=== PATIENT | male | born 1940 | race Caucasian/White ===

== ENCOUNTER 2021-05-22 07:39 | Outpatient (CLI) | payer OTHER, SELFPAY ==
--- NOTE | 2021-05-22 08:00 | USCV_ITS ---
Carlos Nesbitt Age: 80 Gender: M : 1940 Exam Date: 05/22/2021 08:11 Ordering Phys: Tigre Sultana MD ([email or web address]) Technologist: ALEE Exam Location: [facility] – [place] Indication: STENOSIS Risk Factors: Previous Vascular Surgery: Right Brachial BP: / Left Brachial BP: / Right Left Velocity (cm/s) Spectral Plaque Velocity (cm/s) Spectral Plaque Syst/Diast Broadening Syst/Diast Broadening 54.60/ 12.50 Prox CCA 83.50 / 23.00 66.40/ 17.10 Mid CCA 54.60 / 17.70 33.80/ 8.90 Distal CCA 40.20 / 9.40 39.50/ 8.50 Prox ICA 29.50 / 8.10 76.20/ 25.00 Mid ICA 58.50 / 19.70 76.90/ 30.90 Distal ICA 73.70 / 25.60 106.80 ECA 82.20 1.15 ICA/CCA 1.07 Antegrade Vertebral Antegrade 39.40/ 13.80 cm/s 37.40/ 13.90 cm/s Bi Subclavian Bi 54.50 63.60 CONCLUSIONS Right ICA stenosis <50%. Mild atheromatous plaque right carotid bulb/ICA. Left ICA stenosis <50%. Mild atheromatous plaque left carotid bulb/ICA. Normal antegrade Doppler flow noted in the right vertebral artery. Normal antegrade Doppler flow noted in the left vertebral artery. Blaine Best MD (Electronically Signed) Final Date: 22 May 2021 13:18 S
--- NOTE | 2021-05-22 09:00 | CT_ITS ---
WS: [id number] CTA ABDOMEN PELVIS TECHNIQUE: Contrast enhanced CTA of the abdomen and pelvis with coronal and sagittal reformatted imag es and additional MIP Images. CLINICAL INFORMATION: I71.4 - Abdominal aortic aneurysm, without rupture COMPARISON: None. DLP: 682.[address] scans at [facility] use at least one of these dose optimization techniques: automated e xposure control; mA and/or kV adjustment per patient size (includes targeted exams where dose is matc hed to clinical indication); or iterative reconstruction. FINDINGS: Moderate aortic calcification. Distal abdominal aortic aneurysm with peripheral mural thrombus. Aneur ysm measures approximately 2.7 x 3.1 CM AP by transverse. Celiac and SMA are patent with mild calcifi cation at the origin. Proximal renal arteries are patent. SUSAN is patent. Densely calcified common juliocesar ac arteries bilaterally. Chronic emphysematous changes at the lung bases. Slight atelectasis in the right middle lobe and ling janessa. Normal liver. Normal gallbladder. Normal GE junction. Adrenal glands are normal. Normal renal pa renchymal enhancement. No hydronephrosis. Perinephric edema can be seen with renal insufficiency. Fat ty atrophy of the pancreas. Normal spleen. No abdominal or pelvic lymphadenopathy. Enlarged prostate with calcification and evidence of bladder outlet obstruction. Diffuse bladder wall thickening. Prostate measures 3.5 x 4.3 CM. Normal sigmoid colon. No evidence of high-grade small or large bowel obstruction. Fat-containing right inguinal hernia. No pelvic or inguinal lymphadenopathy. Tiny fat-containing umbi lical hernia. CT/CT angio abdomen pelvis [id number] IMPRESSION: 1. Distal abdominal aortic aneurysm with peripheral mural thrombus. Aneurysm m easures 2.7 x 3.1 cm AP by transverse. 2. Celiac, SMA, proximal renal arteries are patent. SUSAN is patent. 3. Enlarged prostate measuring 3.4 x 4.2 CM.Correlation PSA. Evidence of bladd er outlet obstruction. 4. Tiny fat-containing umbilical hernia. 5. No other significant findings.
[2021-05-22 09:20] LABS: Blood Urea Nitrogen 16 mg/dL (8-23)
[2021-05-22] MEDS: iohexol 350 mg/mL 100 mL Btl IV (09:33)
== END 2021-05-22 07:40 | disposition home or self-care (01) ==
LOC: US 07:42
PROVIDERS: Visit Provider Internal Medicine Cardiovascular Disease
DX: I71.4 Abdominal aortic aneurysm, without rupture (principal); K42.9 Umbilical hernia without obstruction or gangrene; N40.0 Benign prostatic hyperplasia without lower urinary tract symptoms
CPT/HCPCS: 36415; 74174; 82565; 84520; 93880

== ENCOUNTER → 2022-05-16 09:45 | Outpatient (BNVA) | payer OTHER, SELFPAY | PROVIDERS: PCP Family Medicine; Visit Provider Internal Medicine Cardiovascular Disease | DX: I25.10 Atherosclerotic heart disease of native coronary artery without angina pectoris (principal); I77.9 Disorder of arteries and arterioles, unspecified; I10 Essential (primary) hypertension; E78.5 Hyperlipidemia, unspecified; I71.40 Abdominal aortic aneurysm, without rupture, unspecified; Z87.891 Personal history of nicotine dependence | CPT/HCPCS: 99213 ==

== ENCOUNTER → 2022-11-13 10:35 | Outpatient (BNVA) | payer OTHER, SELFPAY | PROVIDERS: PCP Family Medicine; Visit Provider Nurse Practitioner Family | DX: L82.0 Inflamed seborrheic keratosis (principal); L57.0 Actinic keratosis; L85.3 Xerosis cutis; D22.5 Melanocytic nevi of trunk; L81.4 Other melanin hyperpigmentation; L57.8 Other skin changes due to chronic exposure to nonionizing radiation; L82.1 Other seborrheic keratosis; R23.3 Spontaneous ecchymoses | CPT/HCPCS: 17000; 17003; 17110; 99214 ==

== ENCOUNTER → 2023-01-21 11:27 | Outpatient (BNVA) | payer OTHER, SELFPAY | PROVIDERS: PCP Family Medicine; Visit Provider Internal Medicine Cardiovascular Disease | DX: I10 Essential (primary) hypertension (principal); I25.10 Atherosclerotic heart disease of native coronary artery without angina pectoris; E78.5 Hyperlipidemia, unspecified; Z95.5 Presence of coronary angioplasty implant and graft; Z87.891 Personal history of nicotine dependence | CPT/HCPCS: 99213 ==

== ENCOUNTER → 2023-08-12 15:02 | Outpatient (BNVA) | payer OTHER, SELFPAY | PROVIDERS: PCP Family Medicine; Visit Provider Dermatology | DX: L57.0 Actinic keratosis (principal); R20.2 Paresthesia of skin; L81.4 Other melanin hyperpigmentation; L57.8 Other skin changes due to chronic exposure to nonionizing radiation; L82.1 Other seborrheic keratosis; D69.2 Other nonthrombocytopenic purpura | CPT/HCPCS: 17000; 99213 ==

== ENCOUNTER → 2023-08-13 12:41 | Outpatient (BNVA) | payer OTHER, SELFPAY | PROVIDERS: PCP Family Medicine; Visit Provider Internal Medicine Cardiovascular Disease | DX: I10 Essential (primary) hypertension (principal); E78.5 Hyperlipidemia, unspecified; Z95.5 Presence of coronary angioplasty implant and graft; I25.10 Atherosclerotic heart disease of native coronary artery without angina pectoris; I77.9 Disorder of arteries and arterioles, unspecified; I71.40 Abdominal aortic aneurysm, without rupture, unspecified; Z87.891 Personal history of nicotine dependence | CPT/HCPCS: 99213 ==

== ENCOUNTER 2023-08-25 10:45 | Outpatient (CLI) | payer OTHER, SELFPAY ==
--- NOTE | 2023-08-25 11:00 | USCV_ITS ---
Carlos Nesbitt Age: 82 Gender: M : 1940 Exam Date: 08/25/2023 11:02 Ordering Phys: Sterling Ashley MD ([email or web address]) Technologist: BOSSMAN [place]am Location[place] [facility] [place] [facility] [place] Indication: RECHECK ON AAA FROM CT EXAM HISTORY: RECHECK ON AAA Diameter (cm) AP x Transverse x Length Velocity (cm/s) Waveform Prox Aorta: 2.15 x 2.10 x 107.80 Mid Aorta: 1.66 x 1.91 x 36.80 Distal Aorta: 2.78 x 3.09 x 36.80 Right Iliac Prox: 1.09 x 1.02 x 102.10 Left Iliac Prox: 1.16 x 1.20 x 80.00 Stent Prox Landing x x Aneurysmal Sac Max x x Lt Lat Sac Dim Rt Lat Sac Dim Stent Dist Landing x x Right Iliac Stent x x Left Iliac Stent x x Right Renal Art Left Renal Art FINDINGS: Comparison: none available. A fusiform abdominal aortic aneurysm is noted with a maximal diameter of 3.1 cm. Atherosclerotic plaque is noted in the abdominal aorta. There is evidence of atherosclerotic plaque no significan stenosis in the right common iliac artery. There is evidence of atherosclerotic plaque no significan stenosis in the left common iliac artery. CONCLUSIONS AAA, 3.[address] Lilli Brunson DO (Electronically Signed) Final Date: 25 August 2023 12:23 S
== END 2023-08-25 10:46 | disposition home or self-care (01) ==
LOC: RAD 10:45
PROVIDERS: PCP Family Medicine; Visit Provider Internal Medicine Cardiovascular Disease
DX: I71.40 Abdominal aortic aneurysm, without rupture, unspecified (principal)
CPT/HCPCS: 93978

== ENCOUNTER 2024-01-12 11:58 | Outpatient (CLI) | payer OTHER, SELFPAY ==
--- NOTE | 2024-01-12 12:09 | PETR_ITS ---
PROCEDURE INFORMATION: Exam: PET/CT Skull Base to Mid-thigh Exam date and time: 01/12/2024 10:49 AM Age: 83 years old Clinical indication: Abnormal findings; Lung nodule; Prior surgery; Surgery date: 6+ months; Surgery type: Bladder LABS AND CLINICAL REPORTS: Glucose: 100 mg/dl Treatment strategy for malignancy (PET staging): Initial Staging (PI) TECHNIQUE: Imaging protocol: Following at least four-hour fasting and following the injection of radiopharmaceutical, low dose CT images were obtained. Then, PET images were obtained. Attenuation corrected images were constructed using the CT scan. Fused images of PET and CT were reviewed. The standardized uptake values (SUV) reported below are maximum values within a region of interest, expressed in gm/ml. Exam includes orbital meatal line to mid-thigh. Radiopharmaceutical: 14 mCi F-18 FDG (Fluorodeoxyglucose), IV. Time of imaging post radiopharmaceutical administration: 1 hour Injection site: Left antecubital COMPARISON: CT angio abdomen pelvis [id number] 05/22/2021 9:26 AM FINDINGS: Brain: Visualized brain has normal physiologic uptake. Orbits: Mild asymmetric thickening and FDG uptake in the region of the right lacrimal gland shows SUV max of 3.8. Pharynx: No abnormal uptake. Larynx: No abnormal uptake. Lungs, pleura and trachea: Severe emphysematous change. Spiculated left upper lobe nodule measures up to 2.7 x 1.7 cm on axial image 59 of series 3 and shows FDG uptake with SUV max of 4.8 on axial image 62 of series 3. Heart: Normal physiologic uptake. Coronary arteries: Heavy coronary artery calcification. Mediastinal space: No abnormal uptake. Liver: No abnormal uptake. Stable right hepatic calcifications. Gallbladder and biliary ducts: No abnormal uptake. Pancreas: No abnormal uptake. Redemonstrated fatty infiltration/atrophy greatest proximally. Spleen: No abnormal uptake. Adrenal glands: No abnormal uptake. Kidneys and ureters: Normal physiologic uptake. Stomach and bowel: No abnormal uptake. Urinary bladder: Evidence of prior surgery at the inferior bladder. Otherwise unremarkable as visualized. Reproductive: Mildly enlarged prostate gland without abnormal FDG uptake. Vasculature: No abnormal uptake. Heavy systemic atherosclerosis with stable fusiform infrarenal abdominal aortic aneurysm measuring 3.2 cm. Lymph nodes: AP window lymph node measures 1.1 cm in the short axis and shows FDG uptake with SUV max of 4.4. FDG uptake at left hilar lymph node that is not discretely measurable shows SUV max of 3.5. Skeleton: Widespread multifocal FDG uptake throughout the imaged axial and proximal appendicular skeletal system with heterogeneous sclerosis at the distal right clavicle and left upper scapula. Mildly heterogeneous attenuation of the posterior left ilium, leftward sacrum, and right supra-acetabular region. Subtle ground-glass attenuation at the left anterior inferior iliac spine and left femoral neck. Multiple additional foci of FDG uptake along the spine, rightward manubrium, bilateral humeri, bilateral pelvic bones and femora showed no underlying CT abnormality. Sparing of the ribs. Non FDG avid lucent lesion at the rightward T12 vertebral body. No acute fracture. Mild degenerative change along the spine. Soft tissues: No abnormal uptake in the visualized head, neck, chest, abdomen, pelvis, and extremities. Linear uptake along the right forearm and hand muscles without underlying CT abnormality likely physiologic. PET/PET skull to thigh INIT [id number] IMPRESSION: 1. FDG avid spiculated left upper lobe nodule suspicious for malignancy. 2. FDG avid mediastinal and left hilar lymphadenopathy likely metastatic. 3. Widespread osseous metastases. 4. Mild asymmetric thickening and FDG uptake in the region of the right lacrimal gland may represent dacryoadenitis. 5. Additional chronic and incidental findings as above, to include atherosclerosis with stable 3.2 cm infrarenal abdominal aortic aneurysm and heavy coronary artery calcification.
== END 2024-01-12 11:59 | disposition home or self-care (01) ==
PROVIDERS: PCP Family Medicine; Visit Provider Family Medicine
DX: D38.1 Neoplasm of uncertain behavior of trachea, bronchus and lung (principal); R91.1 Solitary pulmonary nodule; R93.89 Abnormal findings on diagnostic imaging of other specified body structures; R93.7 Abnormal findings on diagnostic imaging of other parts of musculoskeletal system; I71.43 Infrarenal abdominal aortic aneurysm, without rupture; I25.10 Atherosclerotic heart disease of native coronary artery without angina pectoris; R93.0 Abnormal findings on diagnostic imaging of skull and head, not elsewhere classified; J43.9 Emphysema, unspecified; K76.89 Other specified diseases of liver
CPT/HCPCS: 78815; A9552

== ENCOUNTER → 2024-02-10 12:50 | Outpatient (BNVA) | payer OTHER, SELFPAY | PROVIDERS: PCP Family Medicine; Visit Provider Internal Medicine Cardiovascular Disease | DX: I10 Essential (primary) hypertension (principal); E78.5 Hyperlipidemia, unspecified; Z95.5 Presence of coronary angioplasty implant and graft; I25.10 Atherosclerotic heart disease of native coronary artery without angina pectoris; I77.9 Disorder of arteries and arterioles, unspecified; R94.2 Abnormal results of pulmonary function studies; I71.40 Abdominal aortic aneurysm, without rupture, unspecified; Z87.891 Personal history of nicotine dependence | CPT/HCPCS: 99213 ==

== ENCOUNTER → 2024-07-28 08:36 | Outpatient (BNVA) | payer OTHER, SELFPAY | PROVIDERS: PCP Family Medicine; Visit Provider Nurse Practitioner Family | DX: R20.2 Paresthesia of skin (principal); L81.4 Other melanin hyperpigmentation; L57.8 Other skin changes due to chronic exposure to nonionizing radiation; L82.1 Other seborrheic keratosis; D69.2 Other nonthrombocytopenic purpura; B02.9 Zoster without complications; Z08 Encounter for follow-up examination after completed treatment for malignant neoplasm; Z85.828 Personal history of other malignant neoplasm of skin; L57.0 Actinic keratosis | CPT/HCPCS: 17000; 99214 ==

== ENCOUNTER → 2024-09-01 10:49 | Outpatient (BNVA) | payer OTHER, SELFPAY | PROVIDERS: PCP Family Medicine; Visit Provider Nurse Practitioner Family | DX: B02.9 Zoster without complications (principal); R20.2 Paresthesia of skin; L81.4 Other melanin hyperpigmentation; L57.8 Other skin changes due to chronic exposure to nonionizing radiation; Z08 Encounter for follow-up examination after completed treatment for malignant neoplasm; Z85.828 Personal history of other malignant neoplasm of skin; L57.0 Actinic keratosis | CPT/HCPCS: 17000; 99213 ==

== ENCOUNTER → 2024-09-06 08:23 | Outpatient (BNVA) | payer OTHER, SELFPAY | PROVIDERS: PCP Family Medicine; Visit Provider Nurse Practitioner Family | DX: I71.20 Thoracic aortic aneurysm, without rupture, unspecified (principal); I10 Essential (primary) hypertension; Z87.891 Personal history of nicotine dependence | CPT/HCPCS: 99214 ==

== ENCOUNTER 2024-09-23 10:40 | Outpatient (CLI) | payer OTHER, SELFPAY ==
--- NOTE | 2024-09-23 11:00 | USCV_ITS ---
Carlos Nesbitt Age: 83 Gender: M : 1940 Exam Date: 09/23/2024 10:49 Ordering Phys: Obdulia Ocampo NP Technologist: David Whyte Exam Location: [facility] – [place] Indication: aaa HISTORY: Diameter (cm) AP x Transverse x Length Velocity (cm/s) Waveform Prox Aorta: 2.31 x 2.13 x 41.10 Mid Aorta: 2.08 x 1.85 x 45.40 Distal Aorta: 2.59 x 3.01 x 49.10 Right Iliac Prox: 1.02 x 1.24 x 78.20 Left Iliac Prox: 1.27 x 1.17 x 2.10 98.10 Stent Prox Landing x x Aneurysmal Sac Max x x Lt Lat Sac Dim Rt Lat Sac Dim Stent Dist Landing x x Right Iliac Stent x x Left Iliac Stent x x Right Renal Art Left Renal Art FINDINGS: Comparison:. 08/25/23 A fusiform abdominal aortic aneurysm is noted with a maximal diameter of 3.1 cm. Thrombus is noted in the aneurysm. Thrombus is new from the prior exam, no increase in diameter of the AAA.there is evidence of atherosclerotic plaque no significan stenosis in the right common iliac artery. There is evidence of atherosclerotic plaque no significan stenosis in the left common iliac artery. CONCLUSIONS Stable size AAA, 3.1 cm. New intraluminal thrombus in the aneurysm. No occlusion. Dr. Lilli Brunson DO (Electronically Signed) Final Date: 23 September 2024 11:20 S
== END 2024-09-23 10:41 | disposition home or self-care (01) ==
LOC: RAD 10:40
PROVIDERS: PCP Family Medicine; Visit Provider Nurse Practitioner Family
DX: I71.43 Infrarenal abdominal aortic aneurysm, without rupture (principal); I74.09 Other arterial embolism and thrombosis of abdominal aorta; I70.8 Atherosclerosis of other arteries
CPT/HCPCS: 93978

== ENCOUNTER → 2024-11-30 13:28 | Outpatient (BNVA) | payer OTHER, SELFPAY | PROVIDERS: PCP Family Medicine; Visit Provider Nurse Practitioner Family | DX: R20.2 Paresthesia of skin (principal); L81.4 Other melanin hyperpigmentation; L57.8 Other skin changes due to chronic exposure to nonionizing radiation; Z08 Encounter for follow-up examination after completed treatment for malignant neoplasm; Z85.828 Personal history of other malignant neoplasm of skin; L57.0 Actinic keratosis | CPT/HCPCS: 17000; 99213 ==

== ENCOUNTER → 2025-03-07 15:24 | Outpatient (BNVA) | payer OTHER, SELFPAY | PROVIDERS: PCP Family Medicine; Visit Provider Internal Medicine Cardiovascular Disease | DX: I71.40 Abdominal aortic aneurysm, without rupture, unspecified (principal); I10 Essential (primary) hypertension; C91.10 Chronic lymphocytic leukemia of B-cell type not having achieved remission; I25.10 Atherosclerotic heart disease of native coronary artery without angina pectoris; R94.2 Abnormal results of pulmonary function studies; Z79.01 Long term (current) use of anticoagulants; Z95.5 Presence of coronary angioplasty implant and graft; Z86.711 Personal history of pulmonary embolism | CPT/HCPCS: 99214 ==

== ENCOUNTER → 2025-03-10 15:33 | Outpatient (BNVA) | payer OTHER, MEDICARE, SELFPAY | PROVIDERS: PCP Family Medicine; Visit Provider Nurse Practitioner Family | DX: L57.8 Other skin changes due to chronic exposure to nonionizing radiation (principal); L81.4 Other melanin hyperpigmentation; D22.0 Melanocytic nevi of lip; L82.1 Other seborrheic keratosis; Z08 Encounter for follow-up examination after completed treatment for malignant neoplasm; Z85.828 Personal history of other malignant neoplasm of skin; L57.0 Actinic keratosis | CPT/HCPCS: 17000; 99213 ==